=== PATIENT | male | born 1970 | race Caucasian/White ===

== ENCOUNTER 2016-08-29 12:51 | Emergency (ER) | payer OTHER ==
--- NOTE | ~2016-08-29 | US84 ---
[id number] [facility] [address] [facility]. [place], [place] [address] [id number] MR#: [id number] Acc #: [id number] NAME: HENRIETTA LIM : 1970 SEX: M STUDY DATE/TIME: 08/29/2016 13:49 UNIT: [facility] ROOM: STUDY DESCRIPTION: US LE Veins Complete Nathan Stdy Attending Physician: Karen Macdonald M.D. Ordering Physician: Karen Macdonald M.D. Primary Care Physician: No Primary Care Physician MEDICAL IMAGING REPORT This report is preliminary unless electronic signature is present EXAM Bilateral lower extremity venous duplex, 08/29/2016. HISTORY Bilateral lower extremity pain and edema for 2 days. Evaluate for deep vein thrombosis. TECHNIQUE Venous ultrasound examination of both lower extremities was performed using grayscale, spectral Doppler and color flow Doppler imaging. FINDINGS The examination is negative. There is no evidence of deep venous thrombus from the groin to the lower calf bilaterally. Visualized greater saphenous veins are also patent. IMPRESSION Negative examination. No evidence of lower extremity deep venous thrombosis. Dictated by... Aubrey Us M.D. THIS IS AN ELECTRONICALLY VERIFIED REPORT Aubrey Us M.D. at 08/30/2016 7:20 AM MONIQUE/candace TD: 08/29/2016 16:04 JOB #: [id number] MEDICAL IMAGING REPORT Page 1 of 1 COPY
[2016-08-29 13:39] LABS: URINE SOURCE CLEAN CATCH
[2016-08-29 13:47] LABS: URINE APPEARANCE CLEAR; URINE BILIRUBIN NEG (NEG); URINE BLOOD NEG (NEG); URINE COLOR YELLOW; URINE GLUCOSE NEG (NEG); URINE KETONE NEG (NEG); URINE LEUKOCYTE ESTERASE NEG (NEG); URINE NITRATE NEG (NEG); URINE PH 6.5 (5-8); URINE PROTEIN NEG (NEG); URINE SPECIFIC GRAVITY 1.019 (1.003-1.035)
[2016-08-29 13:53] LABS: AMPHETAMINE POS (NEG); BARBITURATES NEG (NEG); BENZODIAZEPINES POS (NEG); COCAINE NEG (NEG); MARIJUANA NEG (NEG); OPIATES POS (NEG); TRICYCLIC ANTIDEPRESSANTS NEG (NEG); U METHADONE NEG (NEG)
[2016-08-29 14:07] LABS: CULTURE INDICATED? NO
== END 2016-08-29 15:00 | disposition left against medical advice (07) ==
LOC: CED 12:51
PROVIDERS: Emergency Medicine
DX: R60.0 Localized edema (principal); F19.10 Other psychoactive substance abuse, uncomplicated
CPT/HCPCS: 80307; 81003; 82947; 93970; 99284

== ENCOUNTER 2016-09-18 15:02 | Inpatient (IN) | payer OTHER ==
[~2016-09-18] VITALS: Ht 182.9 cm; Wt 90.7 kg
--- NOTE | ~2016-09-18 | HP ---
Unit #: [id number] #: [id number] Patient: HENRIETTA LIM [id number] [place] [address] [id number] I MR#: [id number] NAME: HENRIETTA LIM ROOM: P207 Age: 46 Sex: M Admission Date: 09/18/2016 : 1970 Attending Physician: Noah Marina M.D. Admitting Physician: Noah Marina M.D. Primary Care Physician: Primary Care Physician No HISTORY AND PHYSICAL HISTORY OF PRESENT ILLNESS Henrietta is a 46 year old admitted to [address] [place] [address] because of his drug use. He shoots heroin. PAST MEDICAL HISTORY 1. Long history of opioid abuse to include IV heroin. 2. Hepatitis C. PAST SURGICAL HISTORY Nothing reported. ALLERGIES No known drug allergies. SOCIAL HISTORY He smokes one pack per day. Denies alcohol. Admits to a long history of opioid abuse to include IV heroin. FAMILY HISTORY Medically noncontributory. REVIEW OF SYSTEMS CONSTITUTIONAL: No fever or chills. HEENT: Denies any sore throat, ear pain or runny nose. CARDIOVASCULAR: Denies chest pain, irregular heart rhythm or palpitations. CHEST: Denies shortness of breath or cough. No hemoptysis. GASTROINTESTINAL: Denies nausea, vomiting, diarrhea or chronic constipation. ENDOCRINE: Denies history of increased thirst or urination. No recent significant weight loss or gain. GENITOURINARY: Denies dysuria, frequency, or hematuria. SKIN: Denies any rashes. HEMATOLOGIC: Denies history of increased bleeding or bruising. MUSCULOSKELETAL: Denies any hot, swollen joints. No generalized muscle pain. NEUROLOGIC: Denies problems with vision or speech. No frequent, severe headaches. No numbness, tingling or weakness in any extremities. Denies loss of bladder or bowel control. CURRENT MEDICATIONS Detox protocol Unit #: [id number] #: [id number] Patient: HENRIETTA LIM PHYSICAL EXAMINATION GENERAL: Alert, well-nourished, in no apparent distress. VITAL SIGNS: Blood pressure 130/70, heart rate 80, respirations 16, temperature 98.6. WEIGHT: 200 pounds. HEIGHT: 6'0". SKIN: Warm and dry without rash or lesion. HEENT: Normocephalic. TMs not viewed. Oral and nasal passages clear. Conjunctivae clear. Pupils equal, round and reactive to light and accommodation. Extraocular movements intact. NECK: Supple without lymphadenopathy or thyromegaly. HEART: Regular rate and rhythm without murmur. LUNGS: Clear. ABDOMEN: Soft, nontender. : Not done. EXTREMITIES: No evidence of cyanosis, clubbing or edema. Moves all extremities without focal deficit. NEUROLOGICAL: Grossly within normal limits. Cranial Nerves: II: Visual hardy are intact. III, IV AND : Extraocular movements are intact. Pupils are equal, round and reactive to light. V: Facial sensation is grossly normal. VII: Facial movements and expression are normal. VIII: Auditory acuity grossly intact. IX, X: Uvula is midline. Phonation is normal. XI: Patient shrugs shoulders and turns head normally. XII: Tongue protrudes in the midline. Sensory and Motor Function: Sensory and motor sensation is grossly normal. Motor: moves all extremities well. Coordination: Gait is normal. Deep Tendon Reflexes: Intact. IMPRESSION Psychiatric admission RECOMMENDATIONS PSYCHIATRIC: Per psychiatrist. MEDICAL: I see no contraindications to participating in facility's activities. MEDICAL PROGNOSIS Good. MEDICAL CONDITION Stable. Dictated by... Tonja Mendiola PDiamanteADiamante-Maria De Jesus. for Jass Torres/amber TD: 09/19/2016 00:25 JOB #: [id number] Unit #: [id number] #: [id number] Patient: HENRIETTA LIM HISTORY AND PHYSICAL Page 1 of 1 X Tonja Mendiola X HISTORY AND PHYSICAL
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
--- NOTE | ~2016-09-18 | PN ---
Unit #: [id number] #: [id number] Patient: HENRIETTA LIM [id number] [facility] [address] [place] [address] [id number] I MR#: [id number] NAME: HENRIETTA LIM ROOM: P207 Age: 46 Sex: M Admission Date: 09/18/2016 : 1970 Attending Physician: Noah Marina M.D. Admitting Physician: Noah Marina M.D. Primary Care Physician: Primary Care Physician Maribell FUNK NOTES DATE 09/21/2016 DISCUSSION The patient is resting comfortably. Staff reports that he continues to complain of significant symptoms of opioid withdrawal but has limited his participation within the therapeutic milieu. Dictated by... Noah Marina M.D. CB/bzg TD: 09/21/2016 12:21 JOB #: [id number] IMTIAZ FUNK NOTES Page 1 of 1 X Noah Marina MD PROGRESS NOTE
--- NOTE | ~2016-09-18 | CO ---
Unit #: [id number] #: [id number] Patient: HENRIETTA LIM [id number] [place] [address] [id number] I MR#: [id number] NAME: HENRIETTA LIM ROOM: P207 Age: 46 Sex: M Admission Date: 09/18/2016 : 1970 Attending Physician: Noah Marina M.D. Consultation Date: 09/18/2016 CONSULTATION REPORT SUBJECTIVE Henrietta is a 46-year-old, admitted because of his drug use. He has a long history of opioid use, IV heroin, and history of hepatitis C. We have been asked to see him for urinary retention (?) and bilateral lower extremity swelling. At time of his admission H and P, he had no complaints of urinary retention and no notable swelling was noted. Please see H and P dated 09/18/2016. Dictated by... Tonja Mendiola P.A.-C. for Jass Torres/diya TD: 10/03/2016 13:48 JOB #: [id number] CONSULTATION REPORT Page 1 of 1 X Tonja Mendiola CONSULTATION REPORT
--- NOTE | ~2016-09-18 | PN ---
Unit #: [id number] #: [id number] Patient: HENRIETTA LIM [id number] [facility] [address] [place] [address] [id number] I MR#: [id number] NAME: HENRIETTA LIM ROOM: P207 Age: 46 Sex: M Admission Date: 09/18/2016 : 1970 Attending Physician: Noah Marina M.D. Admitting Physician: Noah Marina M.D. Primary Care Physician: Primary Care Physician Maribell KITCHEN PROGRESS NOTES DATE 09/22/2016 DISCUSSION The patient remains seclusive to room and staff reports no management issues and his detox continued uneventfully. Dictated by... Noah Marina M.D. CB/amber TD: 09/22/2016 22:10 JOB #: [id number] IMTIAZ PROGRESS NOTES Page 1 of 1 X Noah Marina MD X PROGRESS NOTE
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
[2016-09-19 09:45] LABS: AMPHETAMINE POS (NEG); BARBITURATES NEG (NEG); BENZODIAZEPINES POS (NEG); COCAINE NEG (NEG); MARIJUANA POS (NEG); OPIATES POS (NEG); TRICYCLIC ANTIDEPRESSANTS NEG (NEG); U METHADONE NEG (NEG)
[2016-09-19 09:46] LABS: URINE APPEARANCE CLEAR; URINE BILIRUBIN NEG (NEG); URINE BLOOD NEG (NEG); URINE COLOR YELLOW; URINE GLUCOSE NORM (NORM); URINE KETONE NEG (NEG); URINE LEUKOCYTE ESTERASE NEG (NEG); URINE NITRATE NEG (NEG); URINE PROTEIN NEG (NEG); URINE SPECIFIC GRAVITY 1.015 (1.003-1.035); URINE UROBILINOGEN NORM (NORM)
[2016-09-20 09:53] LABS: BASOPHIL# 0.1 X10e3 (0-0.3); BASOPHIL% 1.2 % (0-2.5); EOSINOPHIL% 0.5 % (0.0-7.0); HEMATOCRIT 51.3 % (38.0-50.0); HEMOGLOBIN 17.3 gm/dL (13.0-16.0); LYMPHOCYTE# 1.5 X10e3 (1.0-3.5); LYMPHOCYTE% 18.8 % (17.0-45.0); MEAN CELL VOLUME 86.4 FL (83-96); MEAN CORPUSCULAR HEMOGLOBIN 29.1 PG (28-34); MEAN CORPUSCULAR HGB CONC 33.7 g/dL (30-36); MEAN PLATELET VOLUME 8.4 FL (6.5-11.5); MONOCYTE# 0.4 X10e3 (0-1.0); MONOCYTE% 5.5 % (3.0-12.0); NEUTROPHIL# 5.9 X10e3 (1.5-7.1); PLATELET COUNT 231 X10e3 (140-420); RED BLOOD COUNT 5.94 X10e (3.90-5.60); RED CELL DISTRIBUTION WIDTH 13.5 % (11.0-15.5); WHITE BLOOD COUNT 7.9 X10e3 (4.0-10.5)
[2016-09-20 09:54] LABS: DIFF IND NO
[2016-09-20 09:57] LABS: ALBUMIN SERUM 3.9 g/dL (3.5-5.0); BILIRUBIN,TOTAL 1.1 mg/dL (0.2-2.0); BUN/CREATININE RATIO 11.25; CALCIUM SERUM 9.5 mg/dL (8.4-10.2); CREATININE SERUM 0.8 mg/dL (0.6-1.4); GLOM FILT RATE Estimated 107.2 mL/min (>60); POTASSIUM 4.1 mmol/L (3.5-5.1)
== END 2016-09-24 13:35 | DRG 897 ==
LOC: P2S 15:02
PROVIDERS: Specialist
PROC: HZ2ZZZZ Detoxification Services for Substance Abuse Treatment (ICD-10-PCS; principal; 2016-09-18)
DX: F15.10 Other stimulant abuse, uncomplicated (principal); F11.10 Opioid abuse, uncomplicated; F10.10 Alcohol abuse, uncomplicated; F34.1 Dysthymic disorder; F60.2 Antisocial personality disorder; B19.20 Unspecified viral hepatitis C without hepatic coma
CPT/HCPCS: 80053; 80307; 81003; 85025